=== PATIENT | male | born 1985 | race Caucasian/White ===

== ENCOUNTER → 2016-11-11 | Outpatient (CLI) | payer OTHER ==
--- NOTE | ~2016-11-11 | US113 ---
[facility] A Service of [facility] RADIOLOGY TEXT RESULTS PATIENT: SHY CUELLO LOCATION: [facility] : 83 UNIT #: [id number] AGE: [address]: EDDIE BROWN APR SEX: M ORDER DR: [id number] [facility] [address] [place], [place] [address] [id number] O MR#: [id number] Acc #: [id number] NAME: SHY CUELLO : 1985 SEX: M STUDY DATE/TIME: 11/11/2016 14:13 UNIT: [facility] ROOM: STUDY DESCRIPTION: US Scrotal Duplex Complete Attending Physician: Eddie Brown Aprn Referring Physician: Eddie Brown Aprn Ordering Physician: Eddie Brown Aprn Primary Care Physician: Eddie Brown Aprn MEDICAL IMAGING REPORT This report is preliminary unless electronic signature is present EXAM Testicular ultrasound with color flow Doppler, 11/11/2016. HISTORY Scrotal pain bilaterally for 4 days. Pain level of 9 out of 10. Intermittent sharp pains, no known trauma, pain worsens with walking, slight swelling and edema in the scrotum. TECHNIQUE Corea-scale images of the scrotum were obtained as well as Doppler waveform, spectral analysis and color flow Doppler imaging. FINDINGS The right testicle measured 3.3 cm by 1.8 cm x 4.5 cm while the left testicle measured 2.6 cm x 4.6 cm x 1.8 cm. Both testes are homogeneous in echotexture and demonstrate no cystic or solid mass lesions. Color-flow Doppler images show normal blood flow to both testes. Each epididymis appears normal. IMPRESSION Negative testicular ultrasound with color flow Doppler. Dictated by... Aniket Voss M.D. THIS IS AN ELECTRONICALLY VERIFIED REPORT Aniket Voss M.D. at 11/12/2016 2:16 PM CARLOS A/frantz TD: 11/12/2016 02:28 JOB #: [id number] [facility] A Service of [facility] RADIOLOGY TEXT RESULTS PATIENT: SHY CUELLO [facility] #: [id number] : 83 UNIT #: [id number] AGE: [address]: EDDIE BROWN APR SEX: M ORDER DR: MEDICAL IMAGING REPORT Page 1 of 1 COPY
== END | disposition home or self-care (01) ==
LOC: CGUS 13:30
DX: N50.82 Scrotal pain (principal)
CPT/HCPCS: 93975